=== PATIENT | female | born 1980 | race Caucasian/White ===

== ENCOUNTER 2017-10-22 03:59 | Emergency (ER) | payer SELFPAY ==
[~2017-10-22] VITALS: Ht 157.5 cm; Wt 60.0 kg
[~2017-10-22 03:59] MED LIST: HYDR-3534 PO
[2017-10-22 04:16] VITALS: BP 168/95; PULSE 137; RESP 18; TEMP 99; O2SAT 97
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
[2017-10-22] MEDS ORDERED: oxyCODONE/ACETAMINOPHEN 5 MG/325 MG TAB PO ONE (04:45)
--- NOTE | 2017-10-22 05:09 | RADRPT ---
EXAM DATE/TIME: 10/22/2017 04:53 [facility] COMPARISON: No previous studies available for comparison. INDICATIONS : Right ankle pain. MEDICAL HISTORY : None. SURGICAL HISTORY : None. ENCOUNTER: Initial ACUITY: 1 day PAIN SCORE: 4/10 LOCATION: Right ankle FINDINGS: Three view exam was performed of the right ankle. The bony structures are in normal alignment. There is a nondisplaced transverse fracture through the base of the fifth metatarsal. There is soft tissue swelling over the lateral malleolus. The ankle mortise is intact. No radiopaque foreign bodies are seen. Bony mineralization is normal. CONCLUSION: Nondisplaced fracture through the base of the fifth metatarsal. Navneet Foster MD on October 22, 2017 at 5:05 Board Certified Radiologist. This report was verified electronically.
== END 2017-10-22 06:47 | disposition home or self-care (01) ==
LOC: NEPE 03:59
DX: S00.03XA Contusion of scalp, initial encounter (principal); F10.920 Alcohol use, unspecified with intoxication, uncomplicated; F41.9 Anxiety disorder, unspecified; I11.0 Hypertensive heart disease with heart failure; I50.9 Heart failure, unspecified; I25.2 Old myocardial infarction; Y04.8XXA Assault by other bodily force, initial encounter; Z72.0 Tobacco use
CPT/HCPCS: 73610; 99283; E0113; L3260